=== PATIENT | female | born 1955 | race African-American/Black ===

== ENCOUNTER 2017-09-05 12:13 | Emergency (ER) | payer OTHER ==
[~2017-09-05] VITALS: Ht 154.9 cm; Wt 98.0 kg
[2017-09-05 12:26] VITALS: BP 127/78
== END 2017-09-05 13:43 | disposition home or self-care (01) ==
LOC: ER 12:13
DX: H60.91 Unspecified otitis externa, right ear (principal)
CPT/HCPCS: 99283

== ENCOUNTER 2018-09-17 04:46 | Emergency (ER) | payer OTHER ==
[~2018-09-17] VITALS: Ht 154.9 cm; Wt 82.0 kg
[2018-09-17] MEDS ORDERED: KETOROLAC 30MG/ML VIAL IV STA (06:25)
[2018-09-17] MEDS ORDERED: ONDANSETRON HCL 4MG/2ML INJ IV STA (06:25)
[2018-09-17] MEDS ORDERED: FAMOTIDINE 20MG/2ML VIAL IV STA (06:25)
[2018-09-17 06:38] LABS: CLARITY URINE CLEAR (CLEAR); COLOR URINE YELLOW (YELLOW); KETONES URINE 3+ (NEGATIVE); LEUKOCYTE ESTERASE URINE NEGATIVE (NEGATIVE); NITRITE URINE NEGATIVE (NEGATIVE); OCCULT BLOOD URINE NEGATIVE (NEGATIVE); PH URINE 5.5 (4.5-8.0); PROTEIN URINE NEGATIVE (NEGATIVE); UROBILINOGEN URINE 0.2 E.U./dL (0.2-1.0)
[2018-09-17 08:06] LABS: BASOPHILS % 0.7 % (0.0-2.0); HEMATOCRIT. 44.2 % (36.0-48.0); HEMOGLOBIN. 14.9 g/dL (12.0-16.0); LYMPHOCYTES % 11.9 % (20.0-50.0); MEAN CORPUSCULAR HEMOGLOBIN 30.2 pg (28.0-32.0); MEAN CORPUSCULAR VOLUME 89.3 fL (81.0-99.0); MEAN PLATELET VOLUME 9.9 fl (7.4-10.4); MONOCYTES % 2.4 % (2.0-8.0); PLATELET 275 x1000/uL (130-400); RED BLOOD CELL COUNT 4.95 mill/uL (4.2-5.4); RED CELL DISTRIBUTION WIDTH 13.7 % (11.6-14.6)
[2018-09-17 08:08] LABS: CHLORIDE 103 mEq/L (98-107)
[2018-09-17 08:13] LABS: PROTHROMBIN TIME 10.1 sec (9.6-11.0)
[2018-09-17 09:21] VITALS: BP 148/98
== END 2018-09-17 09:22 | disposition home or self-care (01) ==
LOC: ER 04:46
DX: R10.10 Upper abdominal pain, unspecified (principal); R73.9 Hyperglycemia, unspecified; R03.0 Elevated blood-pressure reading, without diagnosis of hypertension
CPT/HCPCS: 36415; 74176; 80053; 81003; 83690; 85025; 85610; 96374; 96375; 99284; J1885; J2405; J3490; Z7610

== ENCOUNTER 2019-05-31 15:57 | Emergency (ER) | payer OTHER ==
[~2019-05-31] VITALS: Ht 154.9 cm; Wt 97.0 kg
[2019-05-31 18:39] VITALS: BP 161/93
[2019-05-31] MEDS ORDERED: NAPROXEN 250MG TABLET PO ONE (23:00)
== END 2019-05-31 23:19 | disposition home or self-care (01) ==
LOC: ER 15:57
DX: J11.1 Influenza due to unidentified influenza virus with other respiratory manifestations (principal); J20.9 Acute bronchitis, unspecified
CPT/HCPCS: 99281

== ENCOUNTER 2023-08-23 12:39 | Emergency (ER) | payer OTHER ==
[~2023-08-23] VITALS: Ht 167.6 cm; Wt 104.0 kg
[~2023-08-23 12:39] MED LIST: ACET-2708 MT; BACL-141 MT; DIF15 MT
[2023-08-23 13:03] VITALS: BP 160/85; PULSE 94; RESP 20; TEMP 98.2; O2SAT 98
[2023-08-23] MEDS ORDERED: METH-653 MT (14:48)
[2023-08-23] MEDS ORDERED: IBUP-2029 MT (14:48)
== END 2023-08-23 15:32 | disposition home or self-care (01) ==
LOC: ER 12:39
DX: R52 Pain, unspecified (principal); V49.9XXA Car occupant (driver) (passenger) injured in unspecified traffic accident, initial encounter; Y93.89 Activity, other specified; Y92.89 Other specified places as the place of occurrence of the external cause; Y99.8 Other external cause status
CPT/HCPCS: 99283

== ENCOUNTER 2024-02-10 18:45 | Emergency (ER) | payer OTHER ==
[~2024-02-10] VITALS: Ht 154.9 cm; Wt 92.0 kg
[~2024-02-10 18:45] MED LIST changes: +IBUP-2029 MT; +METH-653 MT
[2024-02-10 18:50] VITALS: O2SAT 99
[2024-02-10 19:27] LABS: CLARITY URINE TURBID (CLEAR); COLOR URINE YELLOW (YELLOW); GLUCOSE URINE NEGATIVE (NEGATIVE); KETONES URINE NEGATIVE (NEGATIVE); LEUKOCYTE ESTERASE URINE 3+ (NEGATIVE); NITRITE URINE NEGATIVE (NEGATIVE); OCCULT BLOOD URINE 3+ (NEGATIVE); PROTEIN URINE 2+ (NEGATIVE); SPECIFIC GRAVITY URINE 1.022 (1.005-1.030); UROBILINOGEN URINE 0.2 E.U./dL (0.2-1.0)
[2024-02-10] MEDS ORDERED: NITR-87 MT (19:41)
[2024-02-10 19:55] VITALS: BP 161/89; PULSE 84; RESP 16; TEMP 36.39180; O2SAT 100
[2024-02-10 19:56] LABS: BACTERIA URINE TRACE; RBC URINE 15-25 /hpf (0-2); SQUAMOUS EPITHELIAL CELL URINE 1+ /lpf (RARE/1+); WBC URINE TNTC /hpf (0-2)
[2024-02-10] MEDS: IBUPROFEN 400MG TABLET PO ONE (19:58)
== END 2024-02-10 20:10 | disposition home or self-care (01) ==
LOC: ER 18:45
DX: R30.9 Painful micturition, unspecified (principal); Z79.899 Other long term (current) drug therapy
CPT/HCPCS: 81003; 81025; 87077; 87186; 99283

== ENCOUNTER 2025-02-22 20:14 | Emergency (ER) | payer OTHER ==
[~2025-02-22] VITALS: Ht 167.6 cm; Wt 98.0 kg
[~2025-02-22 20:14] MED LIST changes: +IBUP-1455 MT; -IBUP-2029 MT; +NITR-87 MT
[2025-02-22 20:22] VITALS: BP 143/83; PULSE 94; RESP 18; TEMP 98.7; O2SAT 99
[2025-02-22] MEDS: KETOROLAC 15MG/ML VIAL IM ONE (21:12)
[2025-02-22] MEDS: CYCLOBENZAPRINE 10MG TABLET PO SCH (21:12)
[2025-02-22] MEDS: LIDOCAINE 5% PATCH TOP SCH (21:12)
[2025-02-22] MEDS ORDERED: LIDO-53 TP (22:21)
[2025-02-22] MEDS ORDERED: CYCL5TAB3 MT (22:21)
[2025-02-22] MEDS ORDERED: NAPR-1176 MT (22:21)
== END 2025-02-22 23:14 | disposition home or self-care (01) ==
LOC: ER 20:14
DX: M25.551 Pain in right hip (principal); Z79.1 Long term (current) use of non-steroidal anti-inflammatories (NSAID); Z79.899 Other long term (current) drug therapy; W01.0XXA Fall on same level from slipping, tripping and stumbling without subsequent striking against object, initial encounter; Y93.01 Activity, walking, marching and hiking; Y92.015 Private garage of single-family (private) house as the place of occurrence of the external cause; Y99.8 Other external cause status
CPT/HCPCS: 73502; 96372; 99283; J1885; Z7610